=== PATIENT | female | born 1975 | race Hispanic/Latino ===

== ENCOUNTER 2016-10-15 12:06 | Emergency (ER) | payer MEDICARE, MEDICAID ==
[~2016-10-15] VITALS: Ht 157.5 cm; Wt 68.2 kg
[~2016-10-15 12:06] MED LIST: ALBU8.5H2 INHALATION; CYCL10TA9 PO; NPR500T PO
[2016-10-15 12:11] VITALS: BP 115/84; PULSE 71; RESP 18; O2SAT 99
--- NOTE | 2016-10-15 12:27 | ED.REPORT ---
HPI-Back Pain 40 and Over Date of Service October 15, 2016 ED Provider: Marcial Castro MD Patient is a 41 year old female with a history of chronic lower back pain who presents to the ED complaining of lower back pain onset yesterday. She denies dysuria, weakness or numbness. The patient reports that she was cleaning last night and picked up a heavy weight and felt her back give out. Patient states that she tried taking her muscle relaxant but it did not help. She denies any recent fall or trauma and that it feels like her typical back pain. Nursing Notes Stated Complaint: SEVERE BACK PAIN Chief Complaint: Back Pain or Injury Nursing Notes Reviewed: Yes Allergies: Coded Allergies: ciprofloxacin (Verified Allergy, Intermediate, Hives, 03/21/16) Scheduled PRN Albuterol HFA (Proair HFA) 8.5 Gm Hfa.aer.ad 2 PUFFS INHALATION Q4H PRN PRN For Wheezing Cyclobenzaprine (Cyclobenzaprine) 10 Mg Tablet 10 MG PO HS PRN PRN Spasm Cyclobenzaprine (Cyclobenzaprine) 10 Mg Tablet 10 MG PO TID PRN PRN Spasm Naproxen (Naproxen) 500 Mg Tab 500 MG PO BID PRN PRN For Pain Naproxen (Naproxen) 500 Mg Tab 500 MG PO BID PRN PRN For Pain General Time Seen by MD: 12:24 Chief Complaint Back pain Hx Obtained From: Patient Arrived By: Walk-in Sudden in Onset?: Yes Onset Occurred: Yesterday Symptom Duration: Since onset Caused by: Bending Recent Healthcare: No recent hospitalization, Recent doctor visit Similar Sx Previous: Yes Past Medical History Past Medical History Hx of ruptured ovarian cyst Chronic back pain Reports: Asthma Past Surgical History Denies Smoking History Never Smoker Social History Alcohol Use: Denies alcohol use Drug Use: Denies drug use Other Social History: Local resident Occupation lives by self. no work or school Ambulatory Status Independent Review of Systems Respiratory: Denies: Non-productive cough, Shortness of breath Female: Denies: Dysuria Musculoskeletal: Reports: Back pain Neurologic: Denies: Bladder dysfunction Complete sys rev & neg: except as marked. Physical Exam Initial Vital Signs Vital Signs (First) Date Time Temp Pulse Resp B/P Pulse Ox O2 Delivery O2 Flow Rate FiO2 10/15/16 12:11 36.3 71 18 115/84 99 Room Air Initial VS: Reviewed General/Constitutional: Awake, Alert Respiratory / Chest: Atraumatic, No respiratory distress Cardiovascular: Heart rate NL, Regular rhythm, Heart sounds NL Abdomen: Atraumatic, Soft, Non-tender Back: Atraumatic, No midline vertebral tend diffuse low back tenderness no step offs Neurologic: Oriented X3, Speech NL, No motor deficits, No sensory deficits Lower Extremity / Pelvis / MS: Atraumatic, Full range of motion Skin: Atraumatic, Color NL, No rash, Warm, Dry Head / Eyes: Atraumatic, Normocephalic, PERRL, EOMI Psychiatric: Affect NL, Mood NL Re-Eval/Medical Decision Med Decision/Clinical Course 41-year-old female history of chronic low back pain for twenty years presenting with her typical acute flare of chronic low back pain. She reports heavy lifting yesterday and since then with muscle spasms and low back pain. Trauma. She has no red flag symptoms no weakness numbness tingling incontinence or saddle anesthesia. He has no urinary symptoms. She is requesting Toradol and muscle relaxers. She was given a dose of Toradol and felt much better. She was discharged home with refill of her Flexeril. Recommend naproxen when necessary pain. Return precautions given. Re-Evaluation/Progress : Time of Eval: 12:35 Re-Evaluation/Progress Note: Discussed plan for treatment and discharge during initial interview. The patient understands and agrees to the plan for discharge. All questions were addressed. Counseled Regarding: Diagnosis, Lab results, Need for follow-up, When/why to return to ED Discharge & Departure Impression: Primary Impression: Musculoskeletal back pain Additional Impression: Chronic back pain Back pain location: low back pain Back pain laterality: unspecified Sciatica presence: without sciatica Qualified Code: M54.5 - Low back pain Disposition: Home Discharge Condition All VS Reviewed: Yes Condition: Stable Patient Instructions: Acute Low Back Pain (ED) Additional Instructions: Thank you for trusting us with your care today. You are most likely experiencing of musculoskeletal back pain. You can take the Cyclobenzaprine as prescribed for pain. You can try using ice to help as well. Please follow up with your primary care physician next week. Return to the emergence department if you develop any new or worsening symptoms including fever, incontinence, weakness, tingling or other concerning symptoms. Referrals: Veronica Casey DO (PCP) Mac Attestation Portions of this note were transcribed by Ana León. I, Dr. Luis M Armenta personally performed the history, physical exam and medical decision-making; I reviewed and confirmed the accuracy of the information in the transcribed note. Signed by: Mac Trivedi, 10/15/16 and 1234 copies to: Veronica Casey Ben M MD October 15, 2016 12:27 Simin León October 15, 2016 12:35
[2016-10-15] MEDS ORDERED: NPR500T PO (12:36)
[2016-10-15] MEDS ORDERED: CYCL10TA9 PO (12:36)
[2016-10-15 13:41] VITALS: BP 115/84; PULSE 71; RESP 18; O2SAT 99
== END 2016-10-15 13:42 | disposition home or self-care (01) ==
LOC: SED 12:06
DX: M54.5 Low back pain (principal); X50.0XXA Overexertion from strenuous movement or load, initial encounter; Y93.89 Activity, other specified; Y92.9 Unspecified place or not applicable; Y99.8 Other external cause status; J45.909 Unspecified asthma, uncomplicated; Z88.1 Allergy status to other antibiotic agents
CPT/HCPCS: 81025; 96372; 99284; J1885

== ENCOUNTER 2016-11-17 12:53 | Emergency (ER) | payer MEDICARE, MEDICAID ==
[~2016-11-17] VITALS: Ht 157.5 cm; Wt 68.0 kg
[2016-11-17 13:07] VITALS: BP 115/81; PULSE 95; RESP 17; O2SAT 98
--- NOTE | 2016-11-17 16:45 | ED.REPORT ---
HPI-Syncope Date of Service Nov 17, 2016 ED Provider: Ray Guillaume MD The pt is a 41 y/o female w/ a hx of asthma presenting to the ED due to an episode of syncope. She reports waking up this morning, getting up fairly quickly, feeling dizzy and short of breath, and then losing consciousness and hitting her head on the floor. She describes having a bypass surgery done in 2014 which has increased her episodes of syncope. The pt is also experiencing a headache and a cough, as well as a hx of syncope from both getting up quickly as well as exerting herself. Denies peripheral edema, hematuria, or blood in stool. Nursing Notes Stated Complaint: CUT IN RT EYEBROW Chief Complaint: General Complaint Nursing Notes Reviewed: Yes ([employer] [place], [employer] not reconciled) Allergies: Coded Allergies: ciprofloxacin (Verified Allergy, Intermediate, Hives, 03/21/16) Scheduled Prednisone (PredniSONE) 20 Mg Tablet 60 MG PO DAILY Scheduled PRN Albuterol HFA (Proair HFA) 8.5 Gm Hfa.aer.ad 2 PUFFS INHALATION Q4H PRN PRN For Wheezing Cyclobenzaprine (Cyclobenzaprine) 10 Mg Tablet 10 MG PO HS PRN PRN Spasm Cyclobenzaprine (Cyclobenzaprine) 10 Mg Tablet 10 MG PO TID PRN PRN Spasm Naproxen (Naproxen) 500 Mg Tab 500 MG PO BID PRN PRN For Pain Naproxen (Naproxen) 500 Mg Tab 500 MG PO BID PRN PRN For Pain General Time Seen by Provider: 17:00 Chief Complaint Lost consciousness Hx Obtained From: Patient Arrived By: Walk-in Onset Occurred: Just prior to arrival Recent Healthcare: No recent hospitalization, Recent doctor visit Similar Sx Previous: Yes Past Medical History Past Medical History Hx of ruptured ovarian cyst Chronic back pain Reports: Asthma Past Surgical History Denies Smoking History Never Smoker Social History Alcohol Use: Denies alcohol use Drug Use: Denies drug use Other Social History: Local resident Occupation lives by self. no work or school Ambulatory Status Independent Review of Systems Denies blood in stool Respiratory: Reports: Non-productive cough Cardiovascular: Denies: Edema Neurologic: Reports: Headache Complete sys rev & neg: except as marked. Additional Review of Systems Female: Denies: Hematuria Physical Exam Initial Vital Signs Vital Signs (First) Date Time Temp Pulse Resp B/P Pulse Ox O2 Delivery O2 Flow Rate FiO2 6/26/17 13:07 36.8 95 17 115/81 98 Room Air Initial VS: Reviewed, Vital signs normal General/Constitutional: Awake, Alert Respiratory / Chest: Atraumatic, Breath sounds NL, Breath sounds = bilat, No respiratory distress Cardiovascular: Heart rate NL, Regular rhythm, Heart sounds NL Lower Extremity / Pelvis / MS: Atraumatic, Inspection NL, Full range of motion Neurologic: Oriented X3, Speech NL Head / Eyes: Normocephalic, PERRL R eyebrow laceration ENT: Atraumatic, Airway patent Neck: Atraumatic, Full range of motion Skin: Atraumatic, Color NL, No rash, Warm, Dry Psychiatric: Affect NL, Mood NL Upper Extremity / MS: Atraumatic, Full range of motion Interpretation & Diagnostics Lab Results Interpretation Result Diagram: 11/17/16 1600 11/17/16 1600 Test 11/17/16 16:00 11/17/16 16:21 White Blood Count 6.7th/mm3 (3.8-10.1) Red Blood Count 4.85mil/mm3 (3.90-5.20) Hemoglobin 11.6g/dL (12.0-15.6) Hematocrit 36.8% (35.0-46.0) Mean Corpuscular Volume 75.9fL (81-100) Mean Corpuscular Hemoglobin 23.9pg (27.0-35.0) Mean Corpuscular Hemoglobin Concent 31.5% (32.0-37.0) Red Cell Distribution Width 17.2% (12.3-15.4) Platelet Count 308bil/L (150-400) Neutrophils (%) (Auto) 63.8% (40-74) Lymphocytes (%) (Auto) 21.8% (14-46) Monocytes (%) (Auto) 11.8% (4-12) Eosinophils (%) (Auto) 2.1% (0-5) Basophils (%) (Auto) 0.4% (0-3) Hold Purple Top Tube Received (Received) Hold Blue Top Tube Received (Received) Sodium Level 141mEq/L (134-144) Potassium Level 3.9mEq/L (3.5-5.2) Chloride Level 103mEq/L (97-108) Carbon Dioxide Level 21mmol/L (18-29) Blood Urea Nitrogen 10mg/dL (6-24) Creatinine 0.65mg/dL (0.57-1.00) Estimat Glomerular Filtration Rate 144mL/min (>59) Glucose Level 78mg/dL (60-99) Calcium Level 9.0mg/dL (8.5-10.1) Total Bilirubin 0.2mg/dL (0.0-1.2) Aspartate Amino Transf (AST/SGOT) 21U/L (0-50) Alanine Aminotransferase (ALT/SGPT) 10U/L (0-32) Alkaline Phosphatase 72U/L (25-150) Total Protein 7.9g/dL (6.4-8.4) Albumin 4.5g/dL (3.4-5.0) Hold [place] Top Tube Received (Received) Hold [place] Top Tube Received (Received) Hold Urine Received (Received) ECG Interpretation ECG Interpretation: Rate 89 normal sinus rhythm No evidence of acute ischemia, no evidence of pre-excitation syndrome, normal QTC Time: 15:41 Interpreted by: ED physician CT Head Interpretation Impression: No acute findings Study: Head CT no contrast Interpretation / Wet Read by: Interpret - ED physician Procedures Procedure Notes: 3 cm laceration over right eyebrow, penetrating the dermis. Anesthesia is obtained with 3 mL of bupivacaine 0.5% with epinephrine delivered via 27-gauge needle. Wound is cleansed with chlorhexidine and irrigated with 200 mL normal saline. Base is well visualized and no foreign bodies are noted. Wound is closed in 1 layer with 8 6-0 Prolene simple interrupted sutures. Wound is dressed with antibiotic ointment and gauze. Patient tolerates procedure well with no complications. Re-Eval/Medical Decision Med Decision/Clinical Course This is a pleasant 41-year-old female had an an episode of syncope this morning when she got out of bed fast go to the bathroom, felt dizzy and collapsed into her head on the floor suffering a laceration to the right eyebrow. She had increasing headache since then. She has not had chest pain, shortness of breath. She does reports she has had intermittent syncopal episodes over the years and has not seen a provider. SHe is not on any medications, and has no risk factors for venous thromboembolism. test is negative. Blood work and CT brain and EKG are normal. She had no real dysrhythmic events. She has no heart murmurs. This point a dangerous etiology of the syncope has not been identified. I am not finding medication and additional testing is warranted. Reassurance is indicated and provided. The patient had topical let applied to the laceration, a tetanus update was administered, and the laceration was repaired by the mid- level provider under my supervision. Source of Hx: Old records Re-Evaluation/Progress : Time of Eval: 17:23 Re-Evaluation/Progress Note: Pt rechecked. Informed pt of plan for treatment. Pt understands and agrees with plan for treatment. F/U instructions and RTER warnings given. All questions addressed. Counseled Regarding: Diagnosis, Lab results, Need for follow-up, When/why to return to ED Discharge & Departure Impression: Primary Impression: Syncope Syncope type: unspecified Qualified Code: R55 - Syncope and collapse Additional Impressions: Facial laceration Encounter type: initial encounter Qualified Code: S01.81XA - Laceration without foreign body of other part of head, initial encounter Blunt head trauma Encounter type: initial encounter Qualified Code: S09.8XXA - Other specified injuries of head, initial encounter Disposition: Home Discharge Condition All VS Reviewed: Yes Condition: Stable Additional Instructions: 1. Your tests in the emergency department were normal. 2. A dangerous cause of the syncopal episode (the medical term for passing out ) is not identified. Your heart tests were normal. Your blood counts were normal. 3. Your brain CT scan was normal no evidence of head injury. 4. Your laceration was repaired today with sutures. Keep wound clean, it is okay to shower but no swimming for the next several weeks. Apply bacitracin ointment daily to protect from infection. Return to the ED for suture removal in 6 days. If he develops redness swelling fever or worsening pain-these could be signs of infection and he should return to the emergency department. 5. Drink plenty of fluids - stay well-hydrated, this helps prevent further episodes of syncope. Please note the syncope is extremely common, and while annoying is not generally dangerous. 6. If you need a primary care provider, follow-up with the [facility] residency clinic Referrals: [facility] Residency Clinic Scribe Attestation Portions of this note were transcribed by Cachorro Gagr. I, Dr. Guillaume personally performed the history, physical exam and medical decision-making; I reviewed and confirmed the accuracy of the information in the transcribed note. Signed by : Mac Watkins, 11/17/16 and 5223. copies to: [facility] Residency Clinic Ray Guillaume MD Nov 17, 2016 16:45 Cachorro Garg Nov 17, 2016 17:23 Jose Elias Jean-Baptiste PA-C Nov 17, 2016 18:32
[2016-11-17] MEDS ORDERED: Lidocaine-Epi-Tetracaine Solution 3 mL Syringe TOPICAL ONE (16:50)
[2016-11-17] MEDS ORDERED: TdaP Vaccine 0.5 mL Inj IM ONE (16:50)
[2016-11-17 17:14] LABS: BASOPHILS % (AUTO) 0.4 % (0-3); EOSINOPHILS % (AUTO) 2.1 % (0-5); MONOCYTES % (AUTO) 11.8 % (4-12); Mean Corpuscular Hemoglobin 23.9 pg (27.0-35.0); Mean Corpuscular Volume 75.9 fL (81-100); NEUTROPHILS % (AUTO) 63.8 % (40-74); Platelet Count 308 bil/L (150-400)
[2016-11-17] MEDS ORDERED: PRE20 PO (18:07)
[2016-11-17] MEDS ORDERED: Albuterol HFA 60 Puff 8 Gm Inhaler INHALATION ONE (18:10)
[2016-11-17] MEDS ORDERED: predniSONE 20 mg Tablet PO ONE (18:10)
[2016-11-17] MEDS ORDERED: _Proair 200 Puff/8.5 GM Inhaler INHALATION PRN (18:25)
[2016-11-17 18:41] VITALS: BP 114/80; PULSE 79; RESP 16; O2SAT 98
--- NOTE | 2016-11-17 18:41 | DRSVH ---
PROCEDURE: CT BRAIN WITHOUT CONTRAST ([id number]) INDICATIONS: trauma, laceration TECHNIQUE: Noncontrast 4.5 mm thick angled axial sections acquired from the foramen magnum to the vertex, with c oronal reformats. COMPARISON: None. FINDINGS: Image quality: Excellent. CSF spaces: Basal cisterns are patent. No extra-axial fluid collections. Ventricles are normal in size and shape. Brain: No midline shift. No intracranial masses or hemorrhage. Escobar-white matter interface is norm al. Skull and face: Calvarium and visualized facial bones are intact, without suspicious lesions. Right frontal scalp laceration is noted. Sinuses: Visualized sinuses and mastoids are clear. IMPRESSION: 1. No acute intracranial process. 2. Right frontal scalp laceration. Dictated by: Toya Nunez M.D. on 11/17/2016 at 18:38 Approved by: Toya Nunez M.D. on 11/17/2016 at 18:39
== END 2016-11-17 18:41 | disposition home or self-care (01) ==
LOC: SED 13:27
DX: S01.81XA Laceration without foreign body of other part of head, initial encounter (principal); S09.8XXA Other specified injuries of head, initial encounter; R55 Syncope and collapse; W22.8XXA Striking against or struck by other objects, initial encounter; Y93.89 Activity, other specified; Y92.89 Other specified places as the place of occurrence of the external cause; Y99.8 Other external cause status; J45.909 Unspecified asthma, uncomplicated; Z88.1 Allergy status to other antibiotic agents; Z23 Encounter for immunization

== ENCOUNTER 2016-12-04 17:49 | Emergency (ER) | payer MEDICARE, MEDICAID ==
[~2016-12-04] VITALS: Ht 157.5 cm; Wt 68.0 kg
[~2016-12-04 17:49] MED LIST changes: +PRE20 PO
[2016-12-04 18:07] VITALS: BP 127/85; PULSE 69; RESP 18; O2SAT 100
--- NOTE | 2016-12-04 18:58 | ED.REPORT ---
HPI-Abd Pain F 40 and Over Date of Service Dec 04, 2016 ED Provider: Ray Guillaume MD Pt is a 4 week 41 year old female with a history of ectopic with IUD, cholecystectomy, and who presents to the ED complaining of sharp, cramping bilateral pelvic pain onset yesterday. The pt c/o associated subjective fever, decreased appetite, dizziness, fecal incontinence (1x yesterday), and fatigue. She denies nausea, vomiting, chills, urinary symptoms, vaginal bleeding or discharge, current dizziness, and any other symptoms. Pt reports that she initially had low, right pelvic cramping pain onset 21:00 yesterday, which has now developed into bilateral pelvic pain. She is worried that she has an ectopic because she has previously had one that resulted in an ovary rupture and ectopic surgery. She also reports that she had an IUD placed last year, but it is no longer present. Nursing Notes Stated Complaint: ECTOPIC CHECK Chief Complaint: & Delivery Nursing Notes Reviewed: Yes ([employer], [employer] not reconciled ) Allergies: Coded Allergies: ciprofloxacin (Verified Allergy, Intermediate, Hives, 03/21/16) Scheduled Pnv95/Ferrous Fumarate/FA ( Vitamin Tablet) 28 Mg Iron-800 Mcg Tablet 1 EACH PO DAILY Prednisone (PredniSONE) 20 Mg Tablet 60 MG PO DAILY Scheduled PRN Albuterol HFA (Proair HFA) 8.5 Gm Hfa.aer.ad 2 PUFFS INHALATION Q4H PRN PRN For Wheezing Cyclobenzaprine (Cyclobenzaprine) 10 Mg Tablet 10 MG PO HS PRN PRN Spasm Cyclobenzaprine (Cyclobenzaprine) 10 Mg Tablet 10 MG PO TID PRN PRN Spasm Naproxen (Naproxen) 500 Mg Tab 500 MG PO BID PRN PRN For Pain Naproxen (Naproxen) 500 Mg Tab 500 MG PO BID PRN PRN For Pain General Time Seen by MD: 18:29 Chief Complaint Pelvic pain Hx Obtained From: Patient Arrived By: Walk-in Sudden in Onset?: No Onset Occurred: Yesterday Symptom Duration: Since onset Location: : Pelvis Quality: Painful Severity: Current: Moderate Severity: Maximum: Moderate Recent Healthcare: Recent doctor visit Similar Sx Previous: Yes Past Medical History Past Medical History G8, P6 Hx of ruptured ovarian cyst Chronic back pain h/o ectopic Reports: Asthma Past Surgical History Gastric sleeve ectopic Reports: (x1), Cholecystectomy Smoking History Never Smoker Social History Alcohol Use: Denies alcohol use Drug Use: Denies drug use Other Social History: Local resident Occupation lives by self. no work or school Ambulatory Status Independent Review of Systems + Decreased appetite + Fecal incontinence Constitutional: Reports: Fatigue, Denies: Chills, Fever (subjective fever) GI: Denies: Nausea, Vomiting Female: Reports: Pelvic pain, Denies: Dysuria, Hematuria, Incontinence, Urinary frequency, Urinary urgency , Urination decreased, Urination increased, Vaginal bleeding - abnl, Vaginal discharge Complete sys rev & neg: except as marked. Neurologic: Reports: Dizziness Physical Exam Vital Signs Vital Signs (First) Date Time Temp Pulse Resp B/P Pulse Ox O2 Delivery O2 Flow Rate FiO2 12/04/16 18:07 36.5 69 18 127/85 100 Room Air Initial VS: Reviewed, Vital signs normal Head / Eyes: Atraumatic, Normocephalic Neck: Supple, Full range of motion Extremities: Vascular intact, Neuro intact Skin: Warm, Dry, No cyanosis Neurologic: Alert, Oriented, Nonfocal Psychiatric: Mood/affect normal, Behavior normal General/Constitutional: Awake, Alert, Cooperative, Not toxic appearing Respiratory / Chest: Atraumatic, Breath sounds NL, Breath sounds = bilat Cardiovascular: Heart rate NL, Regular rhythm, Heart sounds NL Abdomen: Atraumatic, Soft, Non-tender Back: Atraumatic, Full range of motion Interpretation & Diagnostics US PELVIS SONOGRAM: IMPRESSION: 1. Possible small early gestational sac within the uterus versus a pseudo- gestational sac. The measurements were correspond to a gestational age of 4 weeks 6 days. 2. Thick walled cystic structure in the ovary with peripheral vascularity. Although this may represent a corpus luteal cyst, ectopic cannot be excluded. 3. Recommend clinical followup and short-term followup ultrasound. Findings discussed with Dr. Guillaume on 12/04/16 at 8:05 PM. Dictated by: Paco Miller M.D. on 12/04/2016 at 20:00 Lab Results Interpretation Result Diagram: 12/04/16 1905 12/04/16 1905 Test 12/04/16 19:05 12/04/16 19:12 White Blood Count 5.8th/mm3 (3.8-10.1) Red Blood Count 4.11mil/mm3 (3.90-5.20) Hemoglobin 9.9g/dL (12.0-15.6) Hematocrit 31.2% (35.0-46.0) Mean Corpuscular Volume 75.9fL (81-100) Mean Corpuscular Hemoglobin 24.1pg (27.0-35.0) Mean Corpuscular Hemoglobin Concent 31.7% (32.0-37.0) Red Cell Distribution Width 16.5% (12.3-15.4) Platelet Count 339bil/L (150-400) Neutrophils (%) (Auto) 49.5% (40-74) Lymphocytes (%) (Auto) 36.6% (14-46) Monocytes (%) (Auto) 12.6% (4-12) Eosinophils (%) (Auto) 1.0% (0-5) Basophils (%) (Auto) 0.3% (0-3) Sodium Level 138mEq/L (134-144) Potassium Level 3.7mEq/L (3.5-5.2) Chloride Level 102mEq/L (97-108) Carbon Dioxide Level 19mmol/L (18-29) Blood Urea Nitrogen 6mg/dL (6-24) Creatinine 0.54mg/dL (0.57-1.00) Estimat Glomerular Filtration Rate 178mL/min (>59) Glucose Level 88mg/dL (60-99) Calcium Level 8.5mg/dL (8.5-10.1) Total Bilirubin 0.2mg/dL (0.0-1.2) Aspartate Amino Transf (AST/SGOT) 17U/L (0-50) Alanine Aminotransferase (ALT/SGPT) 8U/L (0-32) Alkaline Phosphatase 56U/L (25-150) Total Protein 6.9g/dL (6.4-8.4) Albumin 4.0g/dL (3.4-5.0) HCG Beta Subunit 796.0mIU/mL Hold Urine Received (Received) Lab Results Interpretation: CBC normal CMP normal HCG elevated Re-Eval/Medical Decision Med Decision/Clinical Course This is a pleasant 41-year-old female referred in for evaluation of a possible ectopic. This is the patient has had a prior ectopic, think she is newly estimates to be about 4 weeks, developed some pelvic cramping, but without vaginal bleeding. She called the women's clinic upon developing a cramping, she is not yet been seen-and was referred to the emergency department. Patient has normal vitals,'s clinic to well-appearing, with a soft nontender abdomen and no signs of peritonitis. Agitated hCG is elevated, and an ultrasound was obtained, probable gestational sac in the uterus. No hard findings suggest ectopic or hemorrhage were evident. At this point a dangerous cause the pain is not identified, it has been explained she is early enough in the that an ectopic cannot be fully excluded, and that she still having discomfort or develops new symptoms she needs to be seen in recheck. Advised to call the women's clinic tomorrow scheduled appointment, and return if she develop worsening pain, vaginal bleeding, or new or concerning symptoms in the interim. She is discharged in improved condition. Source of Hx: Old records Re-Evaluation/Progress : Time of Eval: 20:19 Re-Evaluation/Progress Note: Pt rechecked. Informed pt of plan for discharge. Pt understands and agrees with plan for discharge. F/U instructions and RTER warnings given. All questions addressed. Consultation : Call Returned at: 20:04 Resident Care Director: Agrees with eval, Agrees with plan Note: Consult with radiology; states that ectopic can't be completely ruled out this early in . Differential Diagnosis: Positive: Intrauterine , Negative: Abdominal aortic aneurysm, Acute abdominal pain, Esophageal rupture , Gun shot wound abdomen, Myocardial infarction, Pelvic inflam disease, Peritonitis, Porphyria, Stab wound abdomen Counseled Regarding: Diagnosis, Lab results, Need for follow-up, When/why to return to ED Discharge & Departure Primary Impression: Weeks of gestation: less than 8 weeks Qualified Code: Z3A.01 - Less than 8 weeks gestation of Additional Impression: Pelvic pain Disposition: Home Discharge Condition All VS Reviewed: Yes Condition: Stable Additional Instructions: 1. A dangerous cause of the pelvic cramping was not identified. 2. Your tests indicate you are , and indicate you are very early in the . We did not find signs that you are having an ectopic or other complication at this time, however, you are so early in the that you do need to be seen and rechecked next week. Please call the women's clinic tomorrow to schedule follow-up appointment. 3. If you develop new or worsening symptoms-increasing pain, bleeding, fever, please return to the emergency department in the interim for reevaluation. 4. You can take tylenol 1000mg three times a day as needed for pain. Referrals: Emmy Foster MD Attestation Portions of this note were transcribed by Katie Tinajero. I, Dr. Guillaume personally performed the history, physical exam and medical decision-making; I reviewed and confirmed the accuracy of the information in the transcribed note. Signed by: Mac Marie, 12/04/16 and 20:54. copies to: Emmy Foster MD, Matthew F MD Dec 04, 2016 18:58 Katie Robles Dec 04, 2016 19:03
[2016-12-04 19:14] LABS: BASOPHILS % (AUTO) 0.3 % (0-3); MONOCYTES % (AUTO) 12.6 % (4-12); Mean Corpuscular Hemoglobin 24.1 pg (27.0-35.0); Mean Corpuscular Volume 75.9 fL (81-100); NEUTROPHILS % (AUTO) 49.5 % (40-74); Platelet Count 339 bil/L (150-400)
--- NOTE | 2016-12-04 20:06 | DRSVH ---
PROCEDURE: US PELVIC SONOGRAM INDICATIONS: Positive home test and right upper quadrant pain. Rule out ectopic patency. TECHNIQUE: Real-time transabdominal scanning was performed of the pelvic organs, with image documentation. COMPARISON: [facility] Ultrasound, US, US PELVIC+TRANSVAG, 08/25/2016, 16:30. FINDINGS: Uterus: Uterus measures 8 x 6 x 4.7 cm. Endometrium measures 11 mm in combined thickness. There is small cystic structure within the endometrium measuring up to 2 mm which may represent a possible sm all early gestational sac versus a pseudo-sac. Ovaries: The right ovary is surgically absent. Left ovary measures 2.3 x 2 x 1.7 cm. There is a sma ll cystic structure within the left ovary with peripheral vascularity measuring up to 1.8 x 1.3 x 2.0 cm. Other: No free pelvic fluid. IMPRESSION: 1. Possible small early gestational sac within the uterus versus a pseudo-gestational sac. The nick urements were correspond to a gestational age of 4 weeks 6 days. 2. Thick walled cystic structure in the ovary with peripheral vascularity. Although this may repres ent a corpus luteal cyst, ectopic cannot be excluded. 3. Recommend clinical followup and short-term followup ultrasound. Findings discussed with Dr. Suraj nolan on 12/04/16 at 8:05 PM. Dictated by: Paco Miller M.D. on 12/04/2016 at 20:00 Approved by: Paco Miller M.D. on 12/04/2016 at 20:05
[2016-12-04] MEDS ORDERED: PNV91TAB6 PO (20:35)
[2016-12-04 20:43] VITALS: BP 132/83; PULSE 65; RESP 14; O2SAT 100
== END 2016-12-04 20:43 | disposition home or self-care (01) ==
LOC: SED 17:49
DX: O26.891 Other specified pregnancy related conditions, first trimester (principal); R10.2 Pelvic and perineal pain; R42 Dizziness and giddiness; R50.9 Fever, unspecified; J45.909 Unspecified asthma, uncomplicated; Z3A.01 Less than 8 weeks gestation of pregnancy; Z87.59 Personal history of other complications of pregnancy, childbirth and the puerperium; Z90.49 Acquired absence of other specified parts of digestive tract; Z88.1 Allergy status to other antibiotic agents

== ENCOUNTER 2016-12-15 13:24 | Emergency (ER) | payer MEDICARE, MEDICAID ==
[~2016-12-15] VITALS: Ht 157.5 cm; Wt 68.2 kg
[~2016-12-15 13:24] MED LIST changes: +PNV91TAB6 PO
[2016-12-15 13:29] VITALS: BP 116/83; PULSE 91; RESP 20; O2SAT 99
--- NOTE | 2016-12-15 16:16 | ED.REPORT ---
HPI-Preg Under 20 Weeks Date of Service Dec 15, 2016 ED Provider: Odilon Bettencourt MD Pt is a 6 wk generally healthy 41 y/o female w/ a hx of prior ectopic presenting to the ED c/o vaginal bleeding onset today. The patient was seen on 12/04 for similar symptoms at which time she was told her US was normal. She was told to f/u with her PCP for which an appointment was scheduled for tomorrow. Today, she has been experiencing vaginal bleeding described as more than a period which has been decreasing since arrival. She denies abdominal cramping, fever, nausea, vomiting. Nursing Notes Stated Complaint: AND BLEEDING Chief Complaint: Female Abdominal Pain Nursing Notes Reviewed: Yes Allergies: Coded Allergies: ciprofloxacin (Verified Allergy, Intermediate, Hives, 03/21/16) Scheduled Pnv95/Ferrous Fumarate/FA ( Vitamin Tablet) 28 Mg Iron-800 Mcg Tablet 1 EACH PO DAILY Prednisone (PredniSONE) 20 Mg Tablet 60 MG PO DAILY Scheduled PRN Albuterol HFA (Proair HFA) 8.5 Gm Hfa.aer.ad 2 PUFFS INHALATION Q4H PRN PRN For Wheezing Cyclobenzaprine (Cyclobenzaprine) 10 Mg Tablet 10 MG PO HS PRN PRN Spasm Cyclobenzaprine (Cyclobenzaprine) 10 Mg Tablet 10 MG PO TID PRN PRN Spasm Naproxen (Naproxen) 500 Mg Tab 500 MG PO BID PRN PRN For Pain Naproxen (Naproxen) 500 Mg Tab 500 MG PO BID PRN PRN For Pain General Time Seen by Provider: 16:25 Chief Complaint Vaginal bleeding Context: : Known 1st trim Hx Obtained From: Patient Arrived By: Walk-in Onset Occurred: 5 - 8 hours ago Symptom Duration: Since onset Progression Since Onset: Constant Severity: Current: No pain currently Severity: Maximum: No pain Recent Healthcare: Recent doctor visit, Recent testing, Previous diagnosis, Prior workup Similar Sx Previous: Yes Past Medical History Past Medical History G8, P6 Hx of ruptured ovarian cyst Chronic back pain h/o ectopic Reports: Asthma Past Surgical History Gastric sleeve ectopic Reports: , Cholecystectomy Smoking History Current Every Day Smoker Social History Alcohol Use: Denies alcohol use Drug Use: Denies drug use Other Social History: Local resident Occupation lives by self. no work or school Ambulatory Status Independent Review of Systems Constitutional: Denies: Chills, Fever Respiratory: Denies: Non-productive cough, Shortness of breath Cardiovascular: Denies: Chest pain GI: Denies: Abdominal pain, Nausea, Vomiting Female: Reports: Vaginal bleeding - abnl, Denies: Pelvic pain, Vaginal discharge Complete sys rev & neg: except as marked. Physical Exam Initial Vital Signs Vital Signs (First) Date Time Temp Pulse Resp B/P Pulse Ox O2 Delivery O2 Flow Rate FiO2 12/15/16 13:29 36.4 91 20 116/83 99 Room Air Initial VS: Reviewed, Vital signs normal Head / Eyes: Atraumatic, Normocephalic ENT: Mucous membranes moist, Conjunctiva normal, No scleral icterus Neck: Full range of motion Respiratory: No respiratory distress Extremities: Vascular intact, No swelling Skin: Warm, Dry, No cyanosis Neurologic: Alert, Oriented, Nonfocal Psychiatric: Mood/affect normal, Behavior normal, Normal thought content General/Constitutional: Awake, Alert, No acute distress, Well appearing, Cooperative, Not toxic appearing Abdomen: No distention Female Genitourinary: Exam deferred : Exam deferred Cardiovascular: Heart rate NL Interpretation & Diagnostics Lab Results Interpretation Test 12/15/16 16:15 HCG Beta Subunit 1415mIU/mL Re-Eval/Medical Decision Med Decision/Clinical Course Rh+ Re-Evaluation/Progress : Time of Eval: 17:13 Patient Status: Condition improved Re-Evaluation/Progress Note: Pt rechecked. Discussed HCG results and threatened . She has a f/u appointment tomorrow. Informed pt of plan for treatment. Pt understands and agrees with plan for treatment. F/U instructions and RTER warnings given. All questions addressed. Counseled Regarding: Diagnosis, Lab results, Need for follow-up, When/why to return to ED Discharge & Departure Primary Impression: Threatened miscarriage Disposition: Home Discharge Condition All VS Reviewed: Yes Condition: Stable Patient Instructions: Threatened Miscarriage (ED) Additional Instructions: Your hormone level 11 days ago was just over 700. Today it is just over 1400. This degree of elevation is totally inconsistent with a viable . You are almost certainly going to have a miscarriage or have had a miscarriage. I recommend follow-up in the clinic tomorrow for further management. For now, do not put anything in the vagina including intercourse or tampons. Follow-up right away if your bleeding is dramatically worse or if you feel terribly lightheaded or faint. Ibuprofen 800 mg every 8 hours will help with the bleeding and cramping if you end up having any. Referrals: NOPCP (PCP) Mac Attestation Portions of this note were transcribed by Ron Michaud. I, Dr. Bettencourt personally performed the history, physical exam and medical decision-making; I reviewed and confirmed the accuracy of the information in the transcribed note. Signed by Mac Razo, 12/15/16 - 1803 Odilon Bettencourt MD Dec 15, 2016 16:16 RON MICHAUD Dec 15, 2016 17:15
[2016-12-15 17:26] VITALS: BP 108/82; PULSE 74; RESP 15; O2SAT 100
[2016-12-15 17:36] VITALS: BP 108/82; PULSE 74; RESP 15; O2SAT 100
== END 2016-12-15 17:36 | disposition home or self-care (01) ==
LOC: SED 13:24
DX: O20.0 Threatened abortion (principal); M54.9 Dorsalgia, unspecified; G89.29 Other chronic pain; J45.909 Unspecified asthma, uncomplicated; F17.200 Nicotine dependence, unspecified, uncomplicated; Z3A.01 Less than 8 weeks gestation of pregnancy; Z87.59 Personal history of other complications of pregnancy, childbirth and the puerperium; Z88.1 Allergy status to other antibiotic agents

== ENCOUNTER → 2016-12-16 | Day surgery (SDC) | payer MEDICARE, MEDICAID ==
[~2016-12-16] MED LIST changes: +METHOTREXATE 25 MG/ML IM ONE
[2016-12-16 15:45] VITALS: BP 112/75; PULSE 80; RESP 20; O2SAT 100
[2016-12-16 16:15] LABS: Mean Corpuscular Hemoglobin 23.8 pg (27.0-35.0); Mean Corpuscular Volume 77.3 fL (81-100)
--- NOTE | 2016-12-16 19:26 | NUR ---
Methotrexate Patient here as outpatient for a methotrexate injection. Patient had labs drawn and vitals taken before injection. Methotrexate checked with another nurse prior to giving. Methotrexate 85 mg IM given to left glute . Discussed side effects with patient answered her questions. Pt was given written info about the drug but left it behind. patient anxious to go home.
== END | disposition home or self-care (01) ==
LOC: MOCO 15:31
PROVIDERS: ATTEND Obstetrics & Gynecology
DX: O26.91 Pregnancy related conditions, unspecified, first trimester (principal); O00.80 Other ectopic pregnancy without intrauterine pregnancy
CPT/HCPCS: 36415; 80053; 85027; 96372; J9260